=== PATIENT | female | born 1990 | race Caucasian/White ===

== ENCOUNTER 2019-03-04 00:53 | Inpatient (IN) ==
[2019-03-04] MEDS ORDERED: ONDANSETRON 4 MG/2 ML VIAL IV PRN ×2 (02:13→18:45)
[2019-03-04] MEDS: LACTATED RINGERS 1,000 ML IV SCH ×2 (02:30→07:18)
[2019-03-04] MEDS: BUTORPHANOL 2 MG/ML VIAL IV PRN ×2 (02:39→06:25)
[2019-03-04 02:49] LABS: Basophils # 0.1 10*3/uL (0.0-0.2); Basophils % 0.3 % (0.0-0.8); Eosinophils # 0.1 10*3/uL (0.0-0.87); Eosinophils % 0.4 % (0.00-10.9); Hematocrit 33.3 VOL% (35.7-47.0); Hemoglobin 11.3 GM/DL (12.0-16.0); Immature Granulocytes % 1.7 %; Immature Granulocytes Absolute 0.24 #; Lymphocytes # 2.5 10*3/uL (1.4-4.0); Lymphocytes % 16.9 % (21.3-54.2); Mean Corpuscular HGB Conc 33.9 GM/DL (32-36); Mean Corpuscular Volume 99.7 FL (87-102); Mean Platelet Volume 10.6 FL (9.6-12.0); Monocytes % 5.6 % (1.7-12.7); Neutrophils % 75.1 % (38.7-73.9); Platelet Count 310 T/CUMM (130-400); Red Blood Count 3.34 MC/CUMM (3.8-5.5); White Blood Count 14.5 T/CUMM (4-12)
[2019-03-04 02:59] LABS: Alanine Aminotransferase 9 U/L (13-56); Albumin 2.5 G/DL (3.4-5.0); Alkaline Phosphatase 164 U/L (45-117); Aspartate Amino Transferase 15 U/L (0-37); Bilirubin,Total < 0.39 MG/DL (0.2-1.0); Blood Urea Nitrogen 5 MG/DL (7-18); Calcium 10.8 MG/DL (8.5-10.1); Glucose 91 MG/DL (74-106); Osmolality,Calculated 271.7 MOS/KG (273-304); Total Protein 6.9 G/DL (6.4-8.3)
[2019-03-04] MEDS ORDERED: OXYTOCIN/LR 20 UNIT/1,000 ML BAG IV ONE ×3 (04:15→18:45)
[2019-03-04] MEDS ORDERED: OXYTOCIN/LR 20 UNIT/1,000 ML BAG IV SCH (05:30)
[2019-03-04] MEDS ORDERED: CITRIC ACID/SODIUM CITRATE 30 ML UDCUP PO ONE (07:09)
[2019-03-04] MEDS ORDERED: FAMOTIDINE 20 MG/2 ML VIAL IV ONE (07:09)
[2019-03-04] MEDS ORDERED: LACTATED RINGERS 1,000 ML IV ONE (07:09)
[2019-03-04] MEDS ORDERED: PROMETHAZINE 25 MG/1 ML VIAL IM ONE (07:10)
[2019-03-04] MEDS ORDERED: diphenhydrAMINE 50 MG/1 ML VIAL IV PRN ×2 (07:10)
[2019-03-04] MEDS ORDERED: ePHEDrine 50 MG/ML AMP IV PRN (07:10)
[2019-03-04] MEDS ORDERED: NALOXONE 0.4 MG/ML VIAL IV PRN (07:10)
[2019-03-04] MEDS ORDERED: hydrOXYzine HCL 25 MG/1 ML VIAL IM PRN (07:10)
[2019-03-04] MEDS ORDERED: fentaNYL 2 MCG/ROPIV 0.2% EPID 100 ML EPIDURAL SCH (07:30)
[2019-03-04] MEDS: LEVOTHYROXINE 112 MCG TABLET PO SCH (07:50)
[2019-03-04 10:33] LABS: Apearance,Urine CLEAR (Clear); Bacteria,Urine Occasional /HPF (Few); Bilirubin,Urine Negative (Negative); Blood, Urine Negative (Negative); Glucose,Urine (UA) Negative (Negative); Ketones,Urine Negative (Negative); Mucus,Urine Few /LPF (Occasional); Nitrite,Urine Negative (Negative); Protein,Urine 100 MG/DL; RBC,Urine <1 /HPF (0-4); Squamous Epithelial Cell,Urine Occasional /HPF (0-10); Urine Color Yellow (Yellow); Urine Specific Gravity 1.008 (1.001-1.035); Urine Urobilinogen < 2.0 EU/DL (0.2-1.0); WBC,Urine <1 /HPF (0-6)
[2019-03-04] MEDS ORDERED: LIDOCAINE 1% 20 ML VIAL ONE (15:43)
[2019-03-04] MEDS ORDERED: MIDAZOLAM 2 MG/2 ML VIAL ONE ×2 (15:43→16:28)
[2019-03-04] MEDS ORDERED: HEPARIN/NACL 0.9% 2 UNITS/ML 1,000 ML IV ONE (15:43)
[2019-03-04] MEDS ORDERED: fentaNYL 100 MCG/2 ML VIAL ONE (15:44)
[2019-03-04] MEDS ORDERED: BIVALIRUDIN 250 MG VIAL IV ONE (16:29)
[2019-03-04] MEDS ORDERED: TRANEXAMIC ACID 1,000 MG/10 ML VIAL ONE (16:41)
[2019-03-04] MEDS ORDERED: miSOPROStol 200 MCG TABLET ONE (16:41)
[2019-03-04] MEDS ORDERED: CARBOPROST TROMETHAMINE 250 MCG/ML AMP IM ONE (16:42)
[2019-03-04] MEDS ORDERED: METHYLERGONOVINE 0.2 MG/1 ML AMP ONE (16:42)
[2019-03-04] MEDS ORDERED: SODIUM CHLORIDE 0.9% 100 ML IV ONE (16:43)
[2019-03-04] MEDS ORDERED: ceFAZolin 3,000 MG in SYRINGE 1 EACH IV ONE (17:30)
[2019-03-04] MEDS ORDERED: ceFAZolin 1,000 MG VIAL ONE (17:30)
[2019-03-04] MEDS ORDERED: WITCH HAZEL PADS 100/JAR TOP PRN (18:45)
[2019-03-04] MEDS ORDERED: BENZOCAINE 20%/MENTHOL 0.5% SPRAY 56 GM CAN TOP PRN (18:45)
[2019-03-04] MEDS ORDERED: HYDROCORTISONE 2.5% RECTAL CREAM 30 GM TUBE TOP PRN (18:45)
[2019-03-04] MEDS ORDERED: BISACODYL 10 MG SUPP RECTAL PRN (18:45)
[2019-03-04] MEDS ORDERED: RHO(D) IMMUNE GLOBULIN 300 MCG SYRINGE IM ONE (18:45)
[2019-03-04] MEDS ORDERED: ACETAMINOPHEN 325 MG TABLET PO PRN (18:45)
[2019-03-04] MEDS ORDERED: LANOLIN 50% CREAM 0.3 OZ TUBE TOP PRN (18:45)
[2019-03-04] MEDS ORDERED: oxyCODONE/ACETAMINOPHEN 5-325 MG TABLET PO PRN ×2 (18:45)
[2019-03-04] MEDS ORDERED: DIPH/TET/ACEL PERT BOOSTER VACCINE 0.5 ML VIAL IM ONE (18:45)
[2019-03-04] MEDS ORDERED: MEASLES/MUMPS/RUBELLA VACCINE 0.5 ML VIAL SUBCUT ONE (18:45)
[2019-03-04] MEDS ORDERED: MORPHINE 10 MG/10 ML VIAL ONE (19:02)
[2019-03-04] MEDS ORDERED: LIDOCAINE MPF 2% /EPI 20 ML VIAL ONE (19:02)
[2019-03-04] MEDS ORDERED: PHENYLEPHRINE 1 MG/10 ML SYRINGE IV ONE (19:02)
[2019-03-05] MEDS: ceFAZolin 1,000 MG in SYRINGE 1 EACH IV SCH ×2 (00:55→08:46)
[2019-03-05 06:10] LABS: Basophils # 0.1 10*3/uL (0.0-0.2); Basophils % 0.3 % (0.0-0.8); Eosinophils % 0.1 % (0.00-10.9); Hematocrit 26.3 VOL% (35.7-47.0); Immature Granulocytes % 1.3 %; Immature Granulocytes Absolute 0.23 #; Lymphocytes # 1.8 10*3/uL (1.4-4.0); Lymphocytes % 9.9 % (21.3-54.2); Mean Corpuscular HGB Conc 32.7 GM/DL (32-36); Mean Corpuscular Volume 101.5 FL (87-102); Mean Platelet Volume 10.6 FL (9.6-12.0); Monocytes % 6.3 % (1.7-12.7); Neutrophils % 82.1 % (38.7-73.9); Platelet Count 265 T/CUMM (130-400); Red Cell Distribution Width 14.5 % (9.3-17.3); White Blood Count 18.1 T/CUMM (4-12)
[2019-03-05 06:12] LABS: Hemoglobin 8.6 GM/DL (12.0-16.0); Red Blood Count 2.59 MC/CUMM (3.8-5.5)
[2019-03-05] MEDS: LEVOTHYROXINE 112 MCG TABLET PO SCH (06:27)
[2019-03-05] MEDS: FERROUS SULFATE 325 MG TABLET PO SCH ×3 (08:46→22:33)
[2019-03-05] MEDS: DOCUSATE SODIUM 100 MG CAPSULE PO SCH ×3 (08:46→22:32)
[2019-03-05] MEDS: IBUPROFEN 800 MG TABLET PO PRN (19:22)
[2019-03-05] MEDS ORDERED: SIMETHICONE CHEW 80 MG TABLET PO PRN (21:45)
[2019-03-05] MEDS: MAGNESIUM HYDROXIDE SUSP 30 ML UDCUP PO PRN (21:54)
[2019-03-06] MEDS: IBUPROFEN 800 MG TABLET PO PRN (00:51)
[2019-03-06] MEDS ORDERED: MAGNESIUM CITRATE 300 ML BOTTLE PO PRN (00:52)
[2019-03-06 07:24] VITALS: BP 130/78
[2019-03-06] MEDS: LEVOTHYROXINE 112 MCG TABLET PO SCH (08:21)
[2019-03-06] MEDS: DOCUSATE SODIUM 100 MG CAPSULE PO SCH (08:21)
[2019-03-06] MEDS: FERROUS SULFATE 325 MG TABLET PO SCH (08:22)
[2019-03-06] MEDS: MAGNESIUM HYDROXIDE SUSP 30 ML UDCUP PO PRN (08:22)
== END 2019-03-06 13:25 | disposition home or self-care (01) | DRG 788 ==
LOC: N.LDOUT 00:53 → N.LD 01:31 → N.OB 22:54
PROVIDERS: ADMIT Specialist; ATTEND Specialist
PROC: LDCSECT (ICD-10-PCS; 2019-03-04 18:00)

== ENCOUNTER 2021-03-06 05:21 | Inpatient (IN) ==
[2021-03-06] MEDS ORDERED: FAMOTIDINE 20 MG/2 ML VIAL IV ONE (06:06)
[2021-03-06] MEDS ORDERED: CITRIC ACID/SODIUM CITRATE 30 ML UDCUP PO ONE (06:06)
[2021-03-06] MEDS ORDERED: LACTATED RINGERS 1,000 ML IV ONE (06:08)
[2021-03-06 06:27] LABS: Basophils % 0.3 % (0.0-0.8); Eosinophils # 0.1 10*3/uL (0.0-0.87); Eosinophils % 0.6 % (0.00-10.9); Hematocrit 34.6 VOL% (35.7-47.0); Hemoglobin 11.7 GM/DL (12.0-16.0); Immature Granulocytes % 0.9 %; Immature Granulocytes Absolute 0.11 #; Lymphocytes % 26.2 % (21.3-54.2); Mean Corpuscular HGB Conc 33.8 GM/DL (32-36); Mean Corpuscular Volume 99.1 FL (87-102); Mean Platelet Volume 11.1 FL (9.6-12.0); Monocytes % 4.7 % (1.7-12.7); Neutrophils % 67.3 % (38.7-73.9); Platelet Count 341 T/CUMM (130-400); Red Blood Count 3.49 MC/CUMM (3.8-5.5); Red Cell Distribution Width 13.6 % (9.3-17.3); White Blood Count 11.6 T/CUMM (4-12)
[2021-03-06] MEDS ORDERED: LACTATED RINGERS 1,000 ML IV SCH (06:30)
[2021-03-06 06:46] LABS: Alanine Aminotransferase 12 U/L (13-56); Albumin 2.6 G/DL (3.4-5.0); Alkaline Phosphatase 142 U/L (45-117); Aspartate Amino Transferase 14 U/L (0-37); Bilirubin,Total < 0.39 MG/DL (0.20-1.00); Blood Urea Nitrogen 6 MG/DL (7-18); Calcium 9.1 MG/DL (8.5-10.1); Carbon Dioxide 21 MMOL/L (21-32); Estimated Glom Filtration Rate 146 ML/MIN; Glucose 89 MG/DL (74-106); Osmolality,Calculated 269.8 MOS/KG (273-304); Sodium 137 MMOL/L (136-145); Total Protein 7.1 G/DL (6.4-8.2)
[2021-03-06] MEDS ORDERED: OXYTOCIN/LR 20 UNIT/1,000 ML BAG IV ONE ×4 (07:14→11:50)
[2021-03-06] MEDS ORDERED: TRANEXAMIC ACID 1,000 MG/10 ML VIAL ONE (07:14)
[2021-03-06] MEDS ORDERED: miSOPROStoL 200 MCG TABLET ONE (07:14)
[2021-03-06] MEDS ORDERED: CARBOPROST TROMETHAMINE 250 MCG/ML AMP IM ONE (07:15)
[2021-03-06] MEDS ORDERED: METHYLERGONOVINE 0.2 MG/1 ML AMP ONE (07:15)
[2021-03-06] MEDS ORDERED: BUPIVACAINE SPINAL 0.75% 2 ML AMP SPINAL ONE (07:28)
[2021-03-06] MEDS ORDERED: ONDANSETRON 4 MG/2 ML VIAL ONE (07:29)
[2021-03-06] MEDS ORDERED: ceFAZolin 3,000 MG in SYRINGE 1 EACH IV ONE (07:30)
[2021-03-06] MEDS ORDERED: KETOROLAC 30 MG/1 ML VIAL ONE (08:10)
[2021-03-06] MEDS ORDERED: ACETAMINOPHEN INJ 1,000 MG/100 ML VIAL IV ONE (08:11)
[2021-03-06] MEDS ORDERED: ePHEDrine 50 MG/ML VIAL ONE (08:47)
[2021-03-06] MEDS ORDERED: PHENYLEPHRINE 1 MG/10 ML SYRINGE IV ONE ×2 (09:06→09:27)
[2021-03-06 09:27] LABS: Cord Arterial Blood HCO3 22.4 MMOL/L
[2021-03-06 09:29] LABS: Cord Venous Blood HCO3 23.5 MMOL/L; Cord Venous Blood PCO2 40.7 MMHG; Cord Venous Blood PO2 26.2 MMHG
[2021-03-06 09:45] LABS: Bilirubin,Urine Negative (Negative); Blood, Urine Negative (Negative); Glucose,Urine (UA) Negative (Negative); Ketones,Urine Negative (Negative); Mucus,Urine Few /LPF (Occasional); Nitrite,Urine Negative (Negative); Protein,Urine 100 MG/DL; RBC,Urine 3 /HPF (0-4); Squamous Epithelial Cell,Urine Occasional /HPF (0-10); Urine Appearance CLEAR (Clear); Urine Color Yellow (Yellow); Urine Specific Gravity 1.021 (1.001-1.035); Urine Urobilinogen < 2.0 EU/DL (0.2-1.0)
[2021-03-06] MEDS ORDERED: WITCH HAZEL PADS 100/JAR TOP PRN (11:50)
[2021-03-06] MEDS ORDERED: HYDROCORTISONE 2.5% RECTAL CREAM 30 GM TUBE TOP PRN (11:50)
[2021-03-06] MEDS ORDERED: oxyCODONE/ACETAMINOPHEN 5-325 MG TABLET PO PRN ×2 (11:50)
[2021-03-06] MEDS ORDERED: BENZOCAINE 20%/MENTHOL 0.5% SPRAY 56 GM CAN TOP PRN (11:50)
[2021-03-06] MEDS ORDERED: DIPH/TET/ACEL PERT BOOSTER VACCINE 0.5 ML VIAL IM ONE (11:50)
[2021-03-06] MEDS ORDERED: RHO(D) IMMUNE GLOBULIN 300 MCG SYRINGE IM ONE (11:50)
[2021-03-06] MEDS ORDERED: BISACODYL 10 MG SUPP RECTAL PRN (11:50)
[2021-03-06] MEDS ORDERED: LANOLIN 50% CREAM 0.3 OZ TUBE TOP PRN (11:50)
[2021-03-06] MEDS ORDERED: MEASLES/MUMPS/RUBELLA VACCINE 0.5 ML VIAL SUBCUT ONE (11:50)
[2021-03-06] MEDS ORDERED: ACETAMINOPHEN 325 MG TABLET PO PRN (11:50)
[2021-03-06] MEDS ORDERED: ONDANSETRON 4 MG/2 ML VIAL IV PRN (11:50)
[2021-03-06] MEDS: KETOROLAC 30 MG/1 ML VIAL IV PRN (16:31)
[2021-03-06] MEDS: ACETAMINOPHEN 500 MG TABLET PO PRN (16:31)
[2021-03-07] MEDS: KETOROLAC 30 MG/1 ML VIAL IV PRN (00:03)
[2021-03-07] MEDS: ACETAMINOPHEN 500 MG TABLET PO PRN (00:05)
[2021-03-07] MEDS: DOCUSATE SODIUM 100 MG CAPSULE PO SCH ×3 (02:24→22:18)
[2021-03-07 06:00] LABS: Basophils # 0.1 10*3/uL (0.0-0.2); Basophils % 0.5 % (0.0-0.8); Eosinophils # 0.1 10*3/uL (0.0-0.87); Eosinophils % 0.5 % (0.00-10.9); Hematocrit 29.5 VOL% (35.7-47.0); Hemoglobin 9.5 GM/DL (12.0-16.0); Immature Granulocytes % 0.6 %; Immature Granulocytes Absolute 0.07 #; Lymphocytes # 2.3 10*3/uL (1.4-4.0); Mean Corpuscular HGB Conc 32.2 GM/DL (32-36); Mean Corpuscular Volume 102.1 FL (87-102); Neutrophils % 72.4 % (38.7-73.9); Platelet Count 311 T/CUMM (130-400); Red Blood Count 2.89 MC/CUMM (3.8-5.5); White Blood Count 11.1 T/CUMM (4-12)
[2021-03-07] MEDS: SIMETHICONE CHEW 80 MG TABLET PO PRN (08:14)
[2021-03-07] MEDS: METOCLOPRAMIDE 10 MG TABLET PO SCH ×2 (08:14→15:16)
[2021-03-07] MEDS: FERROUS SULFATE 325 MG TABLET PO SCH (08:14)
[2021-03-07] MEDS: MAGNESIUM HYDROXIDE SUSP 30 ML UDCUP PO PRN ×2 (08:15→22:17)
[2021-03-07] MEDS: IBUPROFEN 800 MG TABLET PO PRN (15:16)
[2021-03-08] MEDS: METOCLOPRAMIDE 10 MG TABLET PO SCH ×2 (00:58→10:56)
[2021-03-08] MEDS: IBUPROFEN 800 MG TABLET PO PRN (06:13)
[2021-03-08 08:39] VITALS: BP 145/73
[2021-03-08] MEDS ORDERED: INFLUENZA VIRUS VACCINE 0.5 ML SYRINGE IM ONE (09:00)
[2021-03-08] MEDS: FERROUS SULFATE 325 MG TABLET PO SCH (10:35)
[2021-03-08] MEDS: DOCUSATE SODIUM 100 MG CAPSULE PO SCH (10:36)
[2021-03-08] MEDS: SIMETHICONE CHEW 80 MG TABLET PO PRN (10:36)
[2021-03-08] MEDS: MAGNESIUM HYDROXIDE SUSP 30 ML UDCUP PO PRN (10:37)
== END 2021-03-08 11:25 | disposition home or self-care (01) | DRG 539 ==
LOC: N.LD 05:21 → N.OB 11:57
PROVIDERS: ADMIT Specialist; ATTEND Specialist